=== PATIENT | male | born 1955 | race Asian ===

== ENCOUNTER 2022-08-23 10:49 | Emergency (ER) | payer MEDICAID ==
[~2022-08-23] VITALS: Ht 167.6 cm; Wt 84.1 kg
[2022-08-23] MEDS ORDERED: TELM1TAB4 PO (12:59)
[2022-08-23 13:27] LABS: BASOPHILS % (AUTO) 0.7 % (0.0-2.0); EOSINOPHILS % (AUTO) 1.3 % (1.0-6.0); HEMATOCRIT 49.3 % (41-53); HEMOGLOBIN 16.2 g/dL (13.5-17.5); LYMPHOCYTES # (AUTO) 1.7 K/uL (1.0-4.8); LYMPHOCYTES % (AUTO) 20.6 % (22.0-44.0); MEAN CORPUSCULAR HEMOGLOBIN 30.4 pg (26.0-34.0); MEAN CORPUSCULAR HGB CONC 32.9 G/dL (31.0-37.0); MEAN CORPUSCULAR VOLUME 93 fL (80-100); MONOCYTES # (AUTO) 0.6 K/uL (0.1-1.0); MONOCYTES % (AUTO) 7.2 % (2.0-9.0); NEUTROPHILS # (AUTO) 5.8 K/uL (1.8-7.7); NEUTROPHILS % (AUTO) 70.2 % (40.0-70.0); PLATELET COUNT (AUTO) 120 K/uL (150-450); RED BLOOD CELL COUNT(AUTO) 5.32 MIL/uL (4.50-5.90); RED CELL DISTRIBUTION WIDTH 13.5 % (11.5-14.5)
[2022-08-23 13:42] LABS: ANION GAP 8 mmol/L (8-16); CALCIUM, TOTAL 9.7 mg/dL (8.8-10.5); CARBON DIOXIDE 30 mmol/L (22-29); CHLORIDE 101 mmol/L (98-107); CREATININE 0.92 mg/dL (0.60-1.30); GLOMERULAR FILTR. RATE CALC > 60 mL/min (>60); GLUCOSE,RANDOM 193 mg/dL (70-110); POTASSIUM 4.1 mmol/L (3.5-5.1); SODIUM SERUM 139 mmol/L (136-145); UREA NITROGEN, BLOOD 14 mg/dL (7-18)
[2022-08-23] MEDS ORDERED: PERTUSS(ACELL),DIPH,TET VAC/PF 0.5 ML SYRINGE IM. ONE (15:00)
[2022-08-23 15:59] VITALS: BP 174/100
[2022-08-23] MEDS ORDERED: PRED-554 PO (16:15)
[2022-08-23] MEDS ORDERED: VALA100026 PO (16:15)
[2022-08-23] MEDS ORDERED: PredniSONE 20 MG TABLET PO ONE (16:15)
[2022-08-23] MEDS ORDERED: ValACYclovir HCL 500 MG TABLET PO ONE (16:15)
[2022-08-23] MEDS ORDERED: POLY15DR29 OD (16:16)
[2022-08-23] MEDS ORDERED: [UNRECOGNIZED DRUG - CODE] OD (16:16)
== END 2022-08-23 16:40 | disposition home or self-care (01) ==
LOC: EMS 11:05
DX: G51.0 Bell's palsy (principal); I10 Essential (primary) hypertension; S00.81XA Abrasion of other part of head, initial encounter; X58.XXXA Exposure to other specified factors, initial encounter; Y93.89 Activity, other specified; Y92.89 Other specified places as the place of occurrence of the external cause; Y99.8 Other external cause status
CPT/HCPCS: 99285; 70551; 70450; 80048; 85025; 36415; 90715; 90471; J7512